=== PATIENT | male | born 1970 | race African-American/Black ===

== ENCOUNTER 2020-04-16 18:03 | Emergency (ER) | payer OTHER, SELFPAY ==
--- NOTE | ~2020-04-16 | CT_ITS ---
EXAMINATION: CTA brain carotid EXAM DATE: 04/16/2020 19:40 INDICATION: Dizziness. TECHNIQUE: Noncontrast head CT. Spiral CTA of the carotid arteries was performed with intravenous i njection 100 cc of Omnipaque 350. Axial, coronal, sagittal reformatted images reviewed. Additional r eformatted images created on dedicated 3-D workstation. NASCET comparable standard used to assess th e degree of arterial stenosis. Spiral CT angiogram cerebral arteries performed with the same intrave nous injection of contrast. Source images of the brain CTA transferred to dedicated workstation for 3 -D rotational image creation. Coronal, sagittal maximum intensity pixel images also reviewed. The d ose-length product (DLP) for this examination was 1853.11 mGy-cm. The exposure was tailored accordi ng to patient size, and iterative reconstruction (ASIR) was used as additional dose reduction techniq ue. There is no prior study for comparison. FINDINGS: There is no carotid plaque or stenosis. The vertebral arteries are codominant. There is no carotid or vertebral basilar arterial dissection or fibromuscular dysplasia. There are no cerebral a rtery aneurysms. There is symmetric cerebral artery arborization. The sagittal, transverse and sigmoi d sinuses enhance normally, no venous sinus thrombosis. Internal cerebral veins also enhance normally . There is right-sided posterior communicating artery dominant posterior cerebral artery. There is no acute intraparenchymal hemorrhage. No evidence of intraparenchymal brain mass lesion. N o evidence of acute infarction. There is no mass effect or midline shift. There is no obstructive hyd rocephalus suspected. There are no extra-axial collections. There are no calvarial acute fractures. 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 IMPRESSION: No carotid stenosis or acute findings. Reviewed, dictated and finalized at location A.
[2020-04-16 18:08] VITALS: BP 175/99; PULSE 94; RESP 16; TEMP 36.8; O2SAT 98
--- NOTE | 2020-04-16 18:26 | ED.GENADULT ---
HPI - General Adult General Chief complaint: Dizziness Stated complaint: dizzy Time Seen by Provider: 04/16/20 18:23 History of Present Illness HPI narrative: Patient is a 49 y/o male complaining of moderate, intermittent dizziness for 2 months. He describes the dizziness as a sensation of falling to the side. He states that he also passed out yesterday. He admits that he has been stressed recently and has been drinking more than usual. He denies any headache or focal weakness. He has some intermittent nausea. He denies any chest pain or abdominal pain. Related Data Home Medications Medication Instructions Recorded Confirmed No Home Medications 04/16/20 04/16/20 Allergies Allergy/AdvReac Type Severity Reaction Status Date / Time No Known Allergies Allergy Verified 04/16/20 18:31 Review of Systems Constitutional: Constitutional: Denies chills, Denies fever(s), Denies headache(s) and Denies weakness Eyes: Eyes: Denies blurry vision ENT: Denies headache(s) and Denies neck pain Cardiovascular: Cardiovascular: Denies chest pain and Denies dyspnea Respiratory: Respiratory: Denies cough and Denies dyspnea Gastrointestinal: Gastrointestinal: Denies abdominal pain, Denies diarrhea, Reports nausea and Denies vomiting Genitourinary: Genitourinary: Denies hematuria and Denies dysuria Musculoskeletal: Musculoskeletal: Denies back pain and Denies neck pain Neurologic: Reports dizziness, Reports syncope, Denies headache(s) and Denies weakness Exam Const: General: no acute distress and well developed Orientation/consciousness: oriented to person, oriented to place, oriented to time and patient oriented x3 HENMT: Head: normocephalic Ears: external ears normal General nose exam: Normal external nose present Eyes: General: appearance normal, both eyes and all related structures Conjunctivae: conjunctivae normal Neck: Neck: normal visual inspection and full ROM Chest: Chest palpation & inspection: normal inspection of the chest and no tenderness Resp: Effort & Inspection: normal respiratory effort Auscultation: clear to auscultation bilaterally Cardio: Rate: regular rate Rhythm: regular rhythm GI: GI Palp: No abdominal tenderness and Yes Soft to palpation Skin: General skin exam: normal color and turgor normal Neuro: General: oriented to person, oriented to place, oriented to time and patient oriented x3 Cranial nerves: Yes CN's II-XII intact bilaterally Cognition (Neuro): normal cognition Speech: normal speech Motor exam (neuro): 5/5 motor strength present throughout Sensory Exam: normal sensation Coordination: [id number] test normal and [id number] test normal Extrem: General: normal to inspection, full ROM and no pedal edema Psych: Appearance: grossly normal Mental Status: mental status grossly normal Affect: normal affect Course Vital Signs Vital signs: Vital Signs Temperature 36.8 C 04/16/20 18:08 Pulse Rate 94 04/16/20 18:08 Respiratory Rate 16 04/16/20 18:08 Blood Pressure 175/99 H 04/16/20 18:08 Pulse Oximetry 98 04/16/20 18:08 Temperature 36.8 C 04/16/20 18:08 Pulse Rate 93 04/16/20 21:44 Respiratory Rate 20 04/16/20 21:44 Blood Pressure 153/99 H 04/16/20 21:44 Pulse Oximetry 98 04/16/20 21:44 Medical Decision Making Vital Signs Vital Signs: Vital Signs Temperature 36.8 C 04/16/20 18:08 Pulse Rate 94 04/16/20 18:08 Respiratory Rate 16 04/16/20 18:08 Blood Pressure 175/99 H 04/16/20 18:08 Pulse Oximetry 98 04/16/20 18:08 Temperature 36.8 C 04/16/20 18:08 Pulse Rate 93 04/16/20 21:44 Respiratory Rate 20 04/16/20 21:44 Blood Pressure 153/99 H 04/16/20 21:44 Pulse Oximetry 98 04/16/20 21:44 Lab Data Result diagrams: 04/16/20 18:49 04/16/20 18:49 Labs: Lab Results 04/16/20 04/16/20 04/16/20 Range/Units 18:49 18:49 18:49 WBC 4.8 (4.5-10.0) K/mm3 RBC 5.32 (4.6
--- NOTE | 2020-04-16 18:27 | ECG_ITS ---
Measurements Intervals [place] Rate: 85 P: 50 AL: 167 QRS: 81 QRSD: 82 T: -12 QT: 332 QTc: 396 Interpretive Statements SINUS RHYTHM ST ELEVATION IN ANTEROSEPTAL/LAT LEADS- PROBABLY EARLY REPOLARIZATION NONSPECIFIC ST & T-WAVE ABNORMALITY- INFERIOR LEADS BORDERLINE ECG Electronically Signed On 04-16-2020 19:37:16 CDT by Shant Gerber D.O.
[2020-04-16 18:59] LABS: Basophils Percent Auto 0.4 % (0.2-1.2); Eosinophils Absolute Auto 0.1 K/mm3 (0-0.3); Eosinophils Percent Auto 1.9 % (0-4.4); Hematocrit 46.8 % (42.0-52.0); Hemoglobin 16.4 g/dL (14.0-18.0); Immature Granulocyte Absolute 0.01 K/mm3 (0.00-0.031); Immature Granulocyte Percent A 0.2 % (0-0.5); Lymphocytes Absolute Auto 1.97 K/mm3 (0.9-3.2); Lymphocytes Percent Auto 40.7 % (18.3-44.2); Mean Corpuscular Hemoglobin 30.8 pg (26-34); Mean Platelet Volume 9.8 fl (7.4-10.4); Monocytes Absolute Auto 0.5 K/mm3 (0.1-0.6); Monocytes Percent Auto 10.3 % (2.6-8.5); Neutrophils Absolute Auto 2.3 K/mm3 (1.3-6.7); Neutrophils Percent Auto 46.5 % (45.5-73.1); Platelet Count Result 166 k/mm3 (150-375); Red Blood Count 5.32 M/mm3 (4.6-6.20); Red Cell Distribution Width 12.2 % (11.5-14.5); White Blood Count 4.8 K/mm3 (4.5-10.0)
[2020-04-16 19:03] LABS: Add Urine Microscopic? YES; Appearance Urine Clear (Clear); Bilirubin Urine Negative (Negative); Blood Urine 1+ (Negative); Color Urine Yellow (Yellow); Glucose Urine UA Negative (Negative); Ketones Urine Negative (Negative); Leukocyte Esterase Ur Negative LEU/UL (Negative); Mucus Urine Rare /lpf; Nitrate Urine Negative (Negative); Protein Urine Negative (Negative); RBC Urine 0-2 /hpf (0-2); Specific Grav Ur 1.019 (1.001-1.035); Squamous Epithelial Cell Urine Rare /hpf (Few); Urobilinogen Urine Negative mg/dL (<2.0); WBC Urine 0-3 /hpf
[2020-04-16 19:11] LABS: Ethanol 52 mg/dL (<10)
[2020-04-16 19:12] LABS: Alanine Aminotransferase 30 U/L (4-50); Albumin Level 4.4 g/dL (3.5-5.1); Alkaline Phosphatase 56 U/L (38-126); Aspartate Amino Transferase 33 U/L (17-59); Bilirubin,Total 0.4 mg/dL (0.2-1.3); Blood Urea Nitrogen 20 mg/dL (9-20); Calcium 9.3 mg/dL (8.4-10.2); Carbon Dioxide 27 mmol/L (22-30); Chloride 106 mmol/L (98-107); Estimated CRCL calculation 75 ml/min; Estimated Glomerular Filt Rate > 60; Glucose 106 mg/dL (75-110); Potassium 4.2 mmol/L (3.4-5.0); Sodium 141 mmol/L (137-145)
[2020-04-16 19:55] VITALS: BP 144/98; PULSE 85; RESP 20; O2SAT 98
[2020-04-16 21:14] VITALS: BP 157/97; PULSE 89; RESP 20; O2SAT 98
[2020-04-16 21:44] VITALS: BP 153/99; PULSE 93; RESP 20; O2SAT 98
== END 2020-04-16 21:46 | disposition home or self-care (01) ==
PROVIDERS: Emergency Provider Emergency Medicine
DX: F10.129 Alcohol abuse with intoxication, unspecified (principal); Y90.2 Blood alcohol level of 40-59 mg/100 ml; R94.31 Abnormal electrocardiogram [ECG] [EKG]
CPT/HCPCS: 36415; 70496; 70498; 80053; 80307; 81001; 85025; 93005; 99284; Q9967